=== PATIENT | female | born 2000 | race Hispanic/Latino ===

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

== ENCOUNTER 2021-04-12 03:18 | Observation (INO) | payer MEDICAID ==
[2021-04-12 04:00] LABS: APPEARANCE,URINE Turbid (CLEAR); BILIRUBIN,URINE Negative (NEGATIVE); COLOR,URINE Yellow (YELLOW); GLUCOSE, URINE (UA) TRACE mg/dL (NEGATIVE); KETONES,URINE Negative (NEGATIVE); LEUKOCYTE ESTERASE ,URINE Trace (NEGATIVE); NITRATE,URINE Negative (NEGATIVE); OCCULT BLOOD,URINE Negative (NEGATIVE); PROTEIN,URINE Trace mg/dL (NEGATIVE)
[2021-04-12 04:09] LABS: AMPHET/METH SCREEN,URINE NEGATIVE (NEGATIVE); BARBITURATE SCREEN, URINE NEGATIVE (NEGATIVE); BENZODIAZEPINES SCREEN,URINE NEGATIVE (NEGATIVE); CANNABINOID SCREEN,URINE NEGATIVE (NEGATIVE); COCAINE SCREEN,URINE NEGATIVE (NEGATIVE); OPIATE SCREEN,URINE NEGATIVE (NEGATIVE); PHENCYCLIDINE SCREEN,URINE NEGATIVE (NEGATIVE)
[2021-04-12 04:10] LABS: AMORPHOUS SEDIMENT,UR Moderate /LPF (None Seen); BACTERIA,URINE Few /HPF (None Seen); RBC,URINE 0-1 /HPF (0-1)
== END 2021-04-12 05:15 | disposition home or self-care (01) ==
LOC: EDH 03:18 → LDH 03:36
PROVIDERS: ADMIT Internal Medicine; ATTEND Internal Medicine
DX: O60.02 Preterm labor without delivery, second trimester (principal); Z3A.27 27 weeks gestation of pregnancy
CPT/HCPCS: 59025; 80305; 81001; 82948; 99284; G0378 ×2

== ENCOUNTER 2021-08-10 21:41 | Emergency (ER) | payer MEDICAID ==
[~2021-08-10] VITALS: Ht 149.9 cm; Wt 79.4 kg
[2021-08-10 22:07] VITALS: BP 132/90
[2021-08-10] MEDS ORDERED: LIDOCAINE HCL 2% VISCOUS 15 ML UDCUP ONE (22:11)
[2021-08-10 22:19] LABS: APPEARANCE,URINE Clear (CLEAR); BILIRUBIN,URINE Negative (NEGATIVE); COLOR,URINE Yellow (YELLOW); GLUCOSE, URINE (UA) Negative (NEGATIVE); KETONES,URINE Negative (NEGATIVE); LEUKOCYTE ESTERASE ,URINE Negative (NEGATIVE); NITRATE,URINE Negative (NEGATIVE); OCCULT BLOOD,URINE Negative (NEGATIVE); PROTEIN,URINE Trace mg/dL (NEGATIVE)
[2021-08-10] MEDS ORDERED: ONDANSETRON 4MG TABLET PO ONE (22:30)
[2021-08-10] MEDS ORDERED: MAG/ALUM/SIMETH 30 ML UDCUP PO ONE (22:30)
[2021-08-10 22:38] LABS: BASOPHILS % (AUTO) 0.3 % (0.0-5.0); EOSINOPHILS % (AUTO) 0.8 % (0.0-8.0); HEMATOCRIT 41.1 % (36-48); LYMPHOCYTES % (AUTO) 17.6 % (21.0-51.0); MEAN CORPUSCULAR HEMOGLOBIN 25.6 pg (27.0-33.0); MEAN CORPUSCULAR HGB CONC 32.4 g/dL (32.0-36.0); MONOCYTES % (AUTO) 6.1 % (3.0-13.0); NEUTROPHILS % (AUTO) 74.9 % (40.0-77.0); PLATELET COUNT (AUTO) 348 K/uL (130-400); RED CELL DISTRIBUTION WIDTH 15.8 % (11.0-15.5); WHITE BLOOD COUNT (AUTO) 15.4 K/uL (4.8-10.8)
[2021-08-10 22:45] LABS: HCG,QUAL RESULT NEGATIVE (NEGATIVE)
[2021-08-10 22:46] LABS: BACTERIA,URINE None Seen /HPF (None Seen); RBC,URINE 0-1 /HPF (0-1); SQUAMOUS EPITHELIAL CELL,UR Few /HPF (0-2); WBC,URINE 0-1 /HPF (0-1)
[2021-08-10 22:47] LABS: CREATININE 0.8 mg/dL (0.5-1.5); POTASSIUM 3.7 mmol/L (3.5-5.1)
[2021-08-10 22:51] LABS: BILIRUBIN,TOTAL 0.6 mg/dL (0.2-1.0); TOTAL PROTEIN, SERUM 7.9 g/dL (6.0-8.3)
[2021-08-10] MEDS ORDERED: ONDA4TAB10 PO (23:15)
[2021-08-10] MEDS ORDERED: DICY20TA2 PO (23:15)
[2021-08-10] MEDS ORDERED: FAMO20TA8 PO (23:15)
[2021-08-10 23:41] VITALS: BP 121/88
== END 2021-08-10 23:51 | disposition home or self-care (01) ==
LOC: EDH 21:41
DX: R10.13 Epigastric pain (principal); R11.2 Nausea with vomiting, unspecified; R19.7 Diarrhea, unspecified; K21.9 Gastro-esophageal reflux disease without esophagitis; Z79.899 Other long term (current) drug therapy
CPT/HCPCS: 36415; 80053; 81001; 81025; 83690; 85025; 99284; Q0162

== ENCOUNTER 2024-11-12 08:59 | Emergency (ER) | payer BC, MEDICAID ==
[~2024-11-12] VITALS: Ht 149.9 cm; Wt 77.1 kg
[~2024-11-12 08:59] MED LIST: DICY20TA2 PO; FAMO20TA8 PO; ONDA-243 PO
[2024-11-12 09:15] VITALS: BP_DIAS 60
[2024-11-12 09:31] LABS: BASOPHILS # (AUTO) 0.02 K/uL (0.00-0.20); BASOPHILS % (AUTO) 0.2 % (0.0-5.0); EOSINOPHILS # (AUTO) 0.05 K/uL (0.00-0.70); EOSINOPHILS % (AUTO) 0.4 % (0.0-8.0); HEMATOCRIT 35.6 % (36-48); LYMPHOCYTES # (AUTO) 2.5 K/uL (1.0-4.8); LYMPHOCYTES % (AUTO) 21.9 % (21.0-51.0); MEAN CORPUSCULAR HEMOGLOBIN 29.1 pg (27.0-33.0); MEAN CORPUSCULAR HGB CONC 34.8 g/dL (32.0-36.0); MEAN CORPUSCULAR VOLUME 83.6 fL (79-99); MONOCYTES # (AUTO) 0.7 K/uL (0.1-1.0); NEUTROPHILS % (AUTO) 70.6 % (40.0-77.0); PLATELET COUNT (AUTO) 317 K/uL (130-400); RED BLOOD CELL COUNT(AUTO) 4.26 MIL/uL (4.00-5.50); RED CELL DISTRIBUTION WIDTH 12.3 % (11.0-15.5); WHITE BLOOD COUNT (AUTO) 11.4 K/uL (4.8-10.8)
--- NOTE | 2024-11-12 10:09 | HMCIMG ---
US OB >14 WEEKS HISTORY: clear vag discharge, 18 week. FINDINGS: Single fetus in breech presentation. heart rate: 152 bpm. Amniotic fluid index: 1.3 cm-severe oligohydramnios. Placenta: Posterior and grade 2. Because of the severe oligohydramnios, anatomical scan is very limited. stomach and spine aren't well seen. Other structures not well visualized. BIOMETRIC DATA: Biparietal diameter: 3.43 cm, consistent with gestational age of 16.4. Head circumference: 14.75 cm, consistent with gestational age of 17.6. Abdominal circumference: 12.90 cm, consistent with gestational age of 18.4. Femoral length: 2.66 cm, consistent with gestational age of 18.1. weight: 228 grams. IMPRESSION: Single intrauterine of 17 weeks 5 days. Severe oligohydramnios. Emergency room physician was notified of findings at time of exam.
--- NOTE | 2024-11-12 10:59 | ERN ---
ED Note History of Present Illness Stated Complaint: CLEAR VAGINAL DISCHARGE 18 WEEKS GESTATION Chief Complaint: OB<20 weeks gest. Time Seen by MD: 09:01 Dictation: This 23-year-old female presents complaining of clear vaginal discharge with a large volume on Friday and a smaller volume today. The patient is with a an uncertain last menstrual period. She is SAB two. She believes she may be 18 weeks . She has a history of diabetes and C-sections. She lost one of her babies at 24 weeks gestation. The patient is not experiencing pain or bleeding. She was seen at another hospital when this 1st happened three days ago but no sonogram was done. She was told she Was experiencing discharge or . She is normally followed by Dr. Forman. There was no fever, no vomiting or other acute complaint. Patient does not smoke drink or use recreational drugs Allergies: Coded Allergies: No Known Allergies (Unverified Allergy, Unknown, 10/03/19) Home Meds Active Scripts Famotidine (Famotidine) 20 Mg Tablet, 20 MG PO DAILY for acid reflux for 14 Days, #14 TAB Prov:ZULLY JOEL TAILERCPA 08/10/21 Ondansetron (Ondansetron Odt) 4 Mg Tab.rapdis, 4 MG PO TID for nausea and vomiting for 5 Days, #12 TAB Prov:ZULLY JOEL TAILERCPA 08/10/21 Dicyclomine HCl (Bentyl) 20 Mg Tab, 20 MG PO TID for abd pain for 7 Days, #27 TAB Prov:ZULLY JOEL TAILERCPA 08/10/21 Past Medical History Past Medical History: Diabetes-Type II Surgical History: : 4 Para: 1 Aborts: 2 Review of System Dictation All pertinent systems reviewed, negative except as documented in the HPI The ROS is obtained from patient GENERAL/CONSTITUTIONAL: Negative except as documented in HPI. ENT: Negative except as documented in HPI. CARDIOVASCULAR: Negative except as documented in HPI. RESPIRATORY: Negative except as documented in HPI. GASTROINTESTINAL: Negative except as documented in HPI. GENITOURINARY: Negative except as documented in HPI. MUSCULOSKELETAL: Negative except as documented in HPI. SKIN: Negative except as documented in HPI. NEUROLOGIC: Negative except as documented in HPI. Initial Vital Sign VS Vital Signs Date Time Temp Pulse Resp B/P (MAP) Pulse Ox O2 Delivery O2 Flow Rate FiO2 11/12/24 08:59 98.2 102 20 122/82 99 Room Air 0 11/12/24 09:15 21 Physical Exam Dictation VITAL SIGNS: note is made of triage vital signs CONSTITUTIONAL: This is a comfortable patient who is awake, alert, and appropriately interactive. HEAD: Normocephalic, Atraumatic. CV: Normal rate, regular rhythm. No murmur. No edema. RESPIRATORY:Respiratory rate is normal. ABDOMEN: Inspection normal. No distention is appreciated. Bowel sounds are normal. No mass or organomegaly is appreciated. There is no tenderness. No rebound. No rigidity. No voluntary or involuntary guarding. : Pelvic deferred SKIN: Warm, dry, with normal turgor. Capillary refill less than 3 seconds. Normal color.No rash. No cellulitis or abscess. No evidence of acute injury. MS/Extremity: Baseline range of motion is noted in all 4 extremities. There are no deformities. NEURO: Awake and alert, lucid. Facies symmetric and speech is clear. Motor strength 5/5 in all extremities. Sensory grossly intact. PSYCH: Patient is appropriately attentive and cooperative without evidence of hallucination. Results (Laboratory/Radiology) Laboratory/Radiology Laboratory Tests Test 11/12/24 09:24 White Blood Count 11.4 K/uL (4.8-10.8) H Red Blood Count 4.26 MIL/uL (4.00-5.50) Hemoglobin 12.4 g/dL (12.0-16.0) Hematocrit 35.6 % (36-48) L Mean Corpuscular Volume 83.6 fL (79-99) Mean Corpuscular Hemoglobin 29.1 pg (27.0-33.0) Mean Corpuscular Hemoglobin Concent 34.8 g/dL (32.0-36.0) Red Cell Distribution Width 12.3 % (11.0-15.5) Platelet Count 317 K/uL (130-400) Mean Platelet Volume 10.3 fL (7.5-10.5) Immature Granulocyte % (Auto) 0.9 % (0-1) Neutrophils (%) (Auto) 70.6 % (40.0-77.0) Lymphocytes (%) (Auto) 21.9 % (21.0-51.0) Monocytes (%) (Auto) 6.0 % (3.0-13.0) Eosinophils (%) (Auto) 0.4 % (0.0-8.0) Basophils (%) (Auto) 0.2 % (0.0-5.0) Neutrophils # (Auto) 8.0 K/uL (1.8-7.7) H Lymphocytes # (Auto) 2.5 K/uL (1.0-4.8) Monocytes # (Auto) 0.7 K/uL (0.1-1.0) Eosinophils # (Auto) 0.05 K/uL (0.00-0.70) Basophils # (Auto) 0.02 K/uL (0.00-0.20) Absolute Immature Granulocyte (auto 0.10 K/uL (0-1) Nucleated Red Blood Cells 0.0 % (0.0-0.19) Labs Reviewed?: Yes ED Course ED Course Orders Procedure Category Date Status Time Cbc With Differential LAB 11/12/24 Complete 09:12 Us Ob >14 Weeks US 11/12/24 Resulted 09:12 Vital Signs Date Time Temp Pulse Resp B/P (MAP) Pulse Ox O2 Delivery O2 Flow Rate FiO2 11/12/24 11:08 98.1 80 16 120/ 99 Room Air* 0 21 11/12/24 09:15 98.1 80 16 100/60 98 Room Air* 0 21 11/12/24 08:59 98.2 102 20 122/82 99 Room Air 0 Medical Decision Making MDM INITIAL IMPRESSION Initial history and physical concerning for premature rupture of the membranes, amniotic fluid drainage, miscarriage Contributing medical problems: Previous 2nd trimester miscarriage I have reviewed the triage nursing notes and vital signs. The patient is afebrile with acceptable oxygen saturation, heart rate and blood pressure. Initial plan: Laboratory screening, ultrasound DATA REVIEW I have reviewed additional NN, repeat VS, and monitoring where indicated. Heart rate, blood pressure, and O2 saturation are acceptable. Alfredo diagnostic results: CBC unremarkable. Ultrasound shows severe oligohydramnios Other independent historian: none Review of external data: None. ED COURSE Interventions: None Reassessment: Patient has been stable in the ED Discussed the case with her flight attendant/inflight manager, Dr. Forman who requested that we send the patient directly to his office for further management. I reviewed this management plan with the patient who was comfortable going to Dr. Forman's office. The patient was provided with the laboratories and sonogram report prior to discharge I discussed my findings, clinical impression and treatment recommendations with the patient. I have reviewed the social factors contributing to the patient's presentation and disposition planning. My final plan for disposition was made based upon clinical findings, response to treatment and discussion with the patient regarding management options. Hospitalization is not indicated due to lack of meaningful in-hospital interventions available for this patient's problem This dictation was prepared using medical voice recognition software. Occasional voice recognition errors may occur. When identified, these errors have been corrected. While every attempt is made to correct errors during dictation, errors may still exist. The patient is discharged ambulatory, alert in no acute distress without vaginal bleeding or pain DX & DISP Disposition: Discharge Decision to Admit Date: Nov 12, 2024 Decision to Admit Time: 10:58 Departure Impression: Primary Impression: Oligohydramnios in bae in second trimester Condition: Stable Additional Instructions: Take the results and go directly to Dr. Forman's office now Referrals: WILL FORMAN MD (PCP) Time of Disposition: 10:59 NATALIE WINKLER MD Nov 12, 2024 10:59
[2024-11-12 11:08] VITALS: BP_SYST 120; PULSE 80; RESP 16; TEMP 98.1; O2SAT 99
== END 2024-11-12 11:14 | disposition home or self-care (01) ==
LOC: EDH 08:59
DX: O41.02X0 Oligohydramnios, second trimester, not applicable or unspecified (principal); O24.112 Pre-existing type 2 diabetes mellitus, in pregnancy, second trimester; Z3A.18 18 weeks gestation of pregnancy; Z79.899 Other long term (current) drug therapy; Z98.890 Other specified postprocedural states
CPT/HCPCS: 36415; 76805; 85025; 99284